=== PATIENT | male | born 1945 | race Two or more races ===

== ENCOUNTER 2024-06-27 00:13 | Emergency (ER) | payer OTHER ==
[~2024-06-27] VITALS: Ht 170.2 cm; Wt 83.9 kg
[2024-06-27] MEDS ORDERED: AVAPRO150 MG PO (00:27)
[2024-06-27] MEDS ORDERED: LIPITOR40 M1 PO (00:27)
[2024-06-27] MEDS ORDERED: AVAPRO75 MG PO (00:27)
[2024-06-27] MEDS ORDERED: TRILIPIX135 MG PO (00:28)
[2024-06-27] MEDS ORDERED: PROTONIX20 MG (00:28)
[2024-06-27] MEDS ORDERED: CITRACAL + D M1 EACH (00:28)
[2024-06-27] MEDS ORDERED: POVIDONE-IODINE 118 ML BOTT TOP ONE (00:31)
[2024-06-27] MEDS ORDERED: TETANUS & DIPHTHERIA TOX,ADULT 0.5 ML VIAL IM STA (01:39)
[2024-06-27] MEDS ORDERED: CEFTRIAXONE SODIUM 1,000 MG VIAL IV STA (01:39)
[2024-06-27] MEDS ORDERED: TETANUS DIPHTHERIA TOX. ADSOR 5 ML VIAL IM ONE (01:45)
[2024-06-27] MEDS ORDERED: CEFTRIAXONE SODIUM 1,000 MG VIAL ONE (01:45)
[2024-06-27 02:14] LABS: HEMATOCRIT 41.5 % (39.0-48.0); HEMOGLOBIN 14.5 g/dL (13-16.00); MEAN CELL VOLUME 95.5 fL (80.0-100.00); MEAN CORPUSCULAR HEMOGLOBIN 33.5 pg (27.00-32.0); PLATELET COUNT 243 K/uL (150-450); RED BLOOD COUNT 4.34 M/uL (4.00-6.00); RED CELL DISTRIBUTION WIDTH 13.6 % (11.5-14.5)
[2024-06-27 02:29] LABS: URINE APPEARANCE Clear; URINE BILIRRUBIN Negative (NEGATIVE); URINE BLOOD Negative; URINE COLOR Yellow; URINE GLUCOSE Negative (NEGATIVE); URINE KETONE Trace (NEGATIVE); URINE LEUKOCYTE Moderate; URINE NITRATE Negative; URINE PROTEIN Negative (NEGATIVE); URINE UROBILINOGEN 0.2 E.U./dl
[2024-06-27 02:33] LABS: URINE BACTERIA 110.8 uL (0.0-1933); URINE RBC 5.3 uL (0.0-20.8); URINE WBC 37.8 uL (0.0-23.2)
[2024-06-27 02:34] LABS: URINE CAST 0.45 uL (0.0-1.40)
[2024-06-27 02:39] LABS: INR 1.09; PARTIAL THROMBOPLASTIN TIME 29.6 SECONDS (22.0-34.0); PROTHROMBIN TIME 11.8 SECONDS (9.0-11.5)
[2024-06-27 02:44] LABS: ALBUMIN 4.1 gm/dL (3.4-5.0); BILIRUBIN TOTAL 0.63 mg/dL (0.3-1.2); CALCIUM 9.8 mg/dL (8.5-10.1); CREATININE SERUM 1.46 mg/dL (0.70-1.30); GFR 46.46; GLOBULINA 3.7 G/DL (2.4-3.5); POTASSIUM 4.42 mEq/L (3.5-5.1); TOTAL PROTEIN 7.8 gm/dL (6.4-8.2)
[2024-06-27] MEDS ORDERED: 0.9 % SODIUM CHLORIDE 1,000 ML IV ONE (07:30)
== END 2024-06-27 09:13 | disposition left against medical advice (07) ==
LOC: ER 00:15
PROVIDERS: General Practice
DX: S00.11XA Contusion of right eyelid and periocular area, initial encounter (principal); W18.39XA Other fall on same level, initial encounter; Y93.89 Activity, other specified; Y92.018 Other place in single-family (private) house as the place of occurrence of the external cause; R55 Syncope and collapse; I10 Essential (primary) hypertension
CPT/HCPCS: 36415; 70450; 70486; 71250; 72125; 93005; 96365; 99284; J0696